=== PATIENT | female | born 1940 | race Hispanic/Latino ===

== ENCOUNTER 2016-03-24 18:29 | Inpatient (IN) | payer OTHER ==
[~2016-03-24] VITALS: Ht 149.9 cm; Wt 45.4 kg
[~2016-03-24 18:29] MED LIST: ALENDRONATE SOD70 MG PO; BENTYL20 MG PO; COZAAR 100MG T100 MG PO; HYDROXYZINE HCL25 MG PO; NASONEX0.05 MG/Ac NAS; OMEPRAZOLE40 MG PO; PEPCID20 MG PO; REGLAN10 MG PO; SENNA CON/DOCUS1 TAB PO; SINGULAIR10 MG PO; TRAMADOL50 MG PO; TYLENOL #31 TAB PO
[2016-03-24] MEDS ORDERED: HYDROCHLOROTH12.5 M2 PO (20:11)
[2016-03-24] MEDS ORDERED: FAMOTIDINE20 M1 PO (20:12)
[2016-03-24] MEDS ORDERED: LEVOFLOXACIN500 M1 PO (20:12)
[2016-03-24] MEDS ORDERED: LOSARTAN POTAS100 M1 PO (20:13)
[2016-03-24] MEDS ORDERED: ALENDRONATE SOD70 M2 PO (20:13)
[2016-03-24] MEDS ORDERED: CLARITIN10 M1 PO (20:14)
[2016-03-24] MEDS ORDERED: FLONASE ALLERG9.9 ML NASB (20:14)
[2016-03-24] MEDS ORDERED: RESTASIS1 EACH OPH (20:15)
[2016-03-24] MEDS ORDERED: TRAMADOL HCL50 M1 PO (20:15)
--- NOTE | 2016-03-24 20:26 | ED GENERAL ADULT ---
History of Present Illness General Chief Complaint: Upper Respiratory Sx/Fever Stated Complaint: FEVER; URI; BODY ACHES Source: patient Exam Limitations: no limitations Vital Signs & Intake/Output Vital Signs & Intake/Output Vital Signs Date Time Temp Pulse Resp B/P Pulse O2 O2 Flow FiO2 Ox Delivery Rate 03/24 2306 97.8 84 18 130/68 98 Room Air Room Air 03/24 1843 97.4 88 16 134/69 97 Room Air Allergies Coded Allergies: heparin (THROMBOCYTOPENIA 03/24/16) sulfamethoxazole (From BACTRIM) (HIVES 03/24/16) trimethoprim (From BACTRIM) (HIVES 03/24/16) Reconcile Medications Alendronate Sodium 70 MG TABLET 1 TAB PO QSUN OSTEOPOROSIS (Reported) in the morning, at least 30 minutes before the first food, beverage, or medication of the day Cyclosporine (Restasis) 0.05 % DROPERETTE 1 GTT OPH BID BOTH EYES (Reported) Famotidine 20 MG TABLET 1 TAB PO BID GI (Reported) Fluticasone Propionate (Flonase Allergy Relief) 50 MCG/ACTUATION SPRAY.SUSP 1 SPRAY NASB DAILY SINUSES (Reported) Hydrochlorothiazide 12.5 MG TABLET 1 TAB PO DAILY BP (Reported) Levofloxacin 500 MG TABLET 1 TAB PO DAILY ANTIBIOTIC (Reported) Loratadine (Claritin) 10 MG TABLET 1 TAB PO DAILY ALLERGIES (Reported) Losartan Potassium 100 MG TABLET 1 TAB PO DAILY BP (Reported) Tramadol HCl 50 MG TABLET 1 TAB PO PRN PAIN (Reported) Triage Note: PT HAS BEEN SICK SINCE RONI A COLD THAT TURNED INTO A SINUS INFECTION. PT WAS ON ABX LAST WEEK AND SHE IS STILL RUNNING A TEMP AND SHE CANT EAT BECAUSE SHE HAS SORES IN HER MOUTH. Triage Nurses Notes Reviewed? yes Onset: Abrupt Duration: day(s): Timing: recent history Injury Environment: home No Modifying Factors: none HPI: 75-year-old female comes into emergency room with multiple complaints. Patient reports that she has been sick on and off for the past month or so. Patient was prescribed Augmentin initially for runny nose and congestion and sinus infection but was getting some abdominal pain with the medication so she discontinued it. Her doctor recently started her on Levaquin. Patient reports that she's had an associated sore throat. Belching. Some pain in upper abdomen/chest. Associated shortness of breath. Denies any fever. Nothing seems to make the symptoms better or worse. Denies any other associated symptoms. (ELICEO BLAIR) Past History Travel History Traveled to [place] past 21 day No Medical History Any Pertinent Medical History? see below for history Cardiovascular: hypertension Hepatic: HEPC Surgical History Surgical History: non-contributory Psychosocial History Who do you live with Patient/Self Services at Home None What is your primary language Mongolian Tobacco Use: Never used ETOH Use: denies use Illicit Drug Use: denies illicit drug use Family History Hx Contributory? No (ELICEO BLAIR) Review of Systems Review of Systems Constitutional: Reports: see HPI. EENTM: Reports: see HPI. Respiratory: Reports: see HPI. Cardiovascular: Reports: see HPI. GI: Reports: see HPI. Genitourinary: Reports: no symptoms. Musculoskeletal: Reports: no symptoms. Skin: Reports: no symptoms. Neurological/Psychological: Reports: no symptoms. Hematologic/Endocrine: Reports: no symptoms. Immunologic/Allergic: Reports: no symptoms. All Other Systems: Reviewed and Negative (ELICEO BLAIR) Physical Exam Physical Exam General Appearance: well developed/nourished, no apparent distress, alert Head: atraumatic, normal appearance Eyes: Bilateral: normal appearance, EOMI. Ears, Nose, Throat: normal ENT inspection, hearing grossly normal, White plaques on tongue, scrapes off Neck: normal inspection, full range of motion Respiratory: normal breath sounds, chest non-tender, no respiratory distress Cardiovascular: regular rate/rhythm Gastrointestinal: soft Back: normal inspection Extremities: normal inspection, normal range of motion Neurologic/Psych: awake, alert, oriented x 3, normal gait, normal mood/affect Skin: intact, normal color Core Measures ACS in differential dx? No CVA/TIA Diagnosis: No Severe Sepsis Present: No Septic Shock Present: No (ELICEO BLAIR) Progress Differential Diagnoses I considered the following diagnoses in my evaluation of the patient: Oral thrush, Bruna esophagitis, MS, peptic ulcer disease, H. pylori, pulmonary embolism, aortic dissection, sinusitis, pneumonia, pancreatitis, Plan of Care: Orders Procedure Date/time Status Regular Diet 03/25 B Active OXYGEN SETUP (GEN) 03/24 2232 Active Saline Lock 03/24 2232 Active Admit to inpatient 03/24 2232 Active Vital Signs 03/24 2232 Active Activity/Ambulation 03/24 2232 Active Code Status 03/24 2232 Active Patient Data 03/24 2224 Active URINALYSIS 03/24 2024 Complete TROPONIN LEVEL 03/24 2024 Complete COMPREHENSIVE METABOLIC PANEL 03/24 2024 Complete CBC WITHOUT DIFFERENTIAL 03/24 2024 Complete EKG 03/24 2024 Active Intake & Output 03/24 2017 Active Current Medications Sig/Antonia Start time Last Medication Dose Stop Time Status Admin Sodium Chloride 1,000 ML ONCE ONE 03/24 2300 AC (Normal Saline 0.9%) 03/25 0539 Laboratory Tests 03/24/162114: Urine Color YEL, Urine Clarity CLEAR, Urine pH 6.0, Ur Specific Robson 1.025, Urine Protein NEG, Urine Ketones NEG, Urine Nitrite NEG, Urine Bilirubin NEG, Urine Urobilinogen 0.2, Ur Leukocyte Esterase NEG, Ur Microscopic SEDIMENT EXAMINED, Urine RBC RARE, Urine WBC RARE, Ur Epithelial Cells RARE, Hyaline Casts 1-3 H, Urine Mucus RARE, Urine Hemoglobin TRACE-INTACT, Urine Glucose NEG 03/24/162103: Anion Gap 9, Estimated GFR 27 L, BUN/Creatinine Ratio 18.9, Glucose 118 H, Calcium 9.0, Total Bilirubin 0.5, AST 40 H, ALT 36, Alkaline Phosphatase 70, Troponin I < 0.01, Total Protein 7.9, Albumin 3.9, Globulin 4.0, Albumin/ Globulin Ratio 1.0 L, CBC w Diff NO MAN DIFF REQ, RBC 3.27 L, MCV 90.4, MCH 30.3, RDW 14.1, MPV 8.9, Gran % 62.7, Lymphocytes % 25.7, Monocytes % 10.8 H, Eosinophils % 0.6, Basophils % 0.2, Absolute Granulocytes 3.7, Absolute Lymphocytes 1.5, Absolute Monocytes 0.6, Absolute Eosinophils 0, Absolute Basophils 0, PUBS MCHC 33.5 Diagnostic Imaging: Viewed by Me: Radiology Read. Discussed w/RAD: Radiology Read. Radiology Impression: EXAM TYPE: RAD - XRY-CHEST XRAY, PA AND LATERAL EXAMINATION: XR CHEST CLINICAL INFORMATION: Chest pain COMPARISON: Chest x-ray 01/05/2012. CT chest 08/26/2011. TECHNIQUE: 2 views of the chest were obtained. FINDINGS: Chronic density at the right lung apex unchanged since 2012 chest x- ray. This is a coarse calcification in the surrounding scarring as seen on CT chest 08/26/2011. The lungs are otherwise clear. No pulmonary vascular congestion or pleural effusion. The cardiac and mediastinal contours are normal. There are vascular calcifications of thoracic aorta The heart size is normal. IMPRESSION: No acute abnormality of the chest. DICTATED BY: CAROLINA BARNES MD DATE /TIME DICTATED:03/24/162118 OUT PATIENT THERAPIST:VIOLETA DATE/TIME TRANSCRIBED: 03/24/162118 Initial ED EKG: normal intervals, normal p-waves, normal QRS complex, normal sinus rhythm, rate (77) (ELICEO BLAIR) Departure Departure Disposition: STILL A PATIENT Condition: Stable Clinical Impression Primary Impression: Acute renal failure Secondary Impressions: Esophageal candidiasis Referrals: DION FELIZ MD (PCP/Family) Departure Forms: Customer Survey General Discharge Information Admission Note Spoke With: ROHIT LOPEZ MD Documentation of Exam: Documentation of any treatments & extenuating circumstances including Concerns Regarding Discharge (functional status, medication knowledge or non-compliance, living conditions, etc.) that warrant an admission rather than observation: Patient has not been able to eat or drink secondary to food getting stuck and liquid getting stuck. Patient has acute renal failure. Patient require IV hydration. Consider infectious disease consult. Renal consult. I feel the patient would do poorly as an outpatient. She may require an upper endoscopy due to her poor oral intake. Patient's creatinine has doubled from its normal. Patient is likely prerenal secondary to poor oral hydration. Case discussed with Dr. thao. (ELICEO BLAIR) PA/ART THERAPY SPECIALIST Co-Sign Statement Statement: ED Attending supervision documentation- x I saw and evaluated the patient. I have also reviewed all the pertinent lab results and diagnostic results. I agree with the findings and the plan of care as documented in the PA's/ART THERAPY SPECIALIST's documentation. [] I have reviewed the ED Record and agree with the PA's/ART THERAPY SPECIALIST's documentation. [] Additions or exceptions (if any) to the PAs/ART THERAPY SPECIALIST's note and plan are summarized below: [] (RAMEZ HA,LA) Critical Care Note Critical Care Note Critical Care Time: non-applicable (ELICEO BLAIR)
--- NOTE | 2016-03-24 21:25 | RADIOLOGY REPORT ---
EXAMINATION: XR CHEST CLINICAL INFORMATION: Chest pain COMPARISON: Chest x-ray 01/05/2012. CT chest 08/26/2011. TECHNIQUE: 2 views of the chest were obtained. FINDINGS: Chronic density at the right lung apex unchanged since 2012 chest x-ray. This is a coarse calcification in the surrounding scarring as seen on CT chest 08/26/2011. The lungs are otherwise clear. No pulmonary vascular congestion or pleural effusion. The cardiac and mediastinal contours are normal. There are vascular calcifications of thoracic aorta The heart size is normal. IMPRESSION: No acute abnormality of the chest.
[2016-03-24 21:33] LABS: ABSOLUTE BASOPHIL COUNT 0 /CUMM (0.0-0.2); ABSOLUTE EOSINOPHIL COUNT 0 /CUMM (0.0-0.7); ABSOLUTE GRANULOCYTE CT 3.7 /CUMM (1.4-6.5); ABSOLUTE LYMPH COUNT 1.5 /CUMM (1.2-3.4); ABSOLUTE MONOCYTE COUNT 0.6 /CUMM (0.10-0.60); BASOPHIL % 0.2 % (0.0-2.0); EOSINOPHIL % 0.6 % (0-5); GRANULOCYTE % 62.7 % (42.2-75.2); HEMATOCRIT 29.5 % (37-47); MEAN CORPUSCULAR HGB 30.3 PG (27.0-31.0); MEAN CORPUSCULAR HGB CONC 33.5 G/DL (33.0-37.0); MEAN CORPUSCULAR VOLUME 90.4 FL (81.0-99.0); MEAN PLATELET VOLUME 8.9 FL (7.4-10.4); PLATELET COUNT 118 /CUMM (130-400); RBC DISTRIBUTION WIDTH 14.1 % (11.5-14.5); RED BLOOD CELL CT 3.27 /CUMM (4.20-5.40); WHITE BLOOD CELL COUNT 5.9 /CUMM (4.8-10.8)
--- NOTE | 2016-03-25 00:04 | History & Physical ---
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 She claims that she started having symptoms of sinusitis since . Her daughter took her to urgent care where she was given a course of Augmentin for total 10 days, which she started on February 15. Even after a course of Augmentin , she continues to have headache, dizziness, runny nose, and heartburn, so she was given Levaquin for total 7 days. After the course of Levaquin. She continues to have sore throat, feeling feverish, dry cough, swollen glands in the neck. She denies chills, runny nose, headache, earache, toothache, chest pain, abdominal pain, diarrhea, constipation. Social-she can do all her daily activity without any assistance, she lives alone. She denies smoking, alcohol use. Allergies -Bactrim Family history-not significant Allergies/Medications Allergies: Coded Allergies: heparin (THROMBOCYTOPENIA 03/24/16) sulfamethoxazole (From BACTRIM) (HIVES 03/24/16) trimethoprim (From BACTRIM) (HIVES 03/24/16) Home Med list Alendronate Sodium 70 MG TABLET 1 TAB PO QSUN OSTEOPOROSIS (Reported) in the morning, at least 30 minutes before the first food, beverage, or medication of the day Cyclosporine (Restasis) 0.05 % DROPERETTE 1 GTT OPH BID BOTH EYES (Reported) Famotidine 20 MG TABLET 1 TAB PO BID GI (Reported) Fluticasone Propionate (Flonase Allergy Relief) 50 MCG/ACTUATION SPRAY.SUSP 1 SPRAY NASB DAILY SINUSES (Reported) Hydrochlorothiazide 12.5 MG TABLET 1 TAB PO DAILY BP (Reported) Levofloxacin 500 MG TABLET 1 TAB PO DAILY ANTIBIOTIC (Reported) Loratadine (Claritin) 10 MG TABLET 1 TAB PO DAILY ALLERGIES (Reported) Losartan Potassium 100 MG TABLET 1 TAB PO DAILY BP (Reported) Tramadol HCl 50 MG TABLET 1 TAB PO PRN PAIN (Reported) Past History Travel History Traveled to [place] past 21 day No Medical History Cardiovascular: hypertension Hepatic: HEPC Surgical History Surgical History: non-contributory Past Family/Social History Psychosocial History Services at Home: None ETOH Use: denies use Illicit Drug Use: denies illicit drug use Review of Systems Review of Systems Constitutional: Reports: fever, weakness. Denies: chills, diaphoresis. EENTM: Denies: blurred vision, double vision, visual changes, eye pain, eye drainage, eye tearing, icterus, ear discharge, ear pain, ear redness, hearing changes, nasal congestion. Cardiovascular: Denies: chest pain, edema, orthopena, palpitations, peripheral edema. Respiratory: Denies: cough, hemoptysis, orthopnea, short of breath, sputum production, stridor, wheezing. GI: Denies: abdominal pain, bloating, constipation, diarrhea, distention, bowel incontinence, melena, nausea, bloody stool, changes in stool, vomiting, steatorrhea. Genitourinary: Denies: discharge, dysuria, frequency, hematuria, hesitation, nocturia. Musculoskeletal: Denies: back pain, gout, joint pain, joint swelling. Skin: Denies: erythema, jaundice. Neurological/Psychological: Denies: anxiety, depressed. Exam & Diagnostic Data Last 24 Hrs of Vital Signs/I&O Vital Signs Date Time Temp Pulse Resp B/P Pulse O2 O2 Flow FiO2 Ox Delivery Rate 03/25 0245 98.0 80 18 132/64 97 Room Air 03/25 0228 97.9 75 18 125/59 98 Room Air 03/24 2306 97.8 84 18 130/68 98 Room Air Room Air 03/24 1843 97.4 88 16 134/69 97 Room Air Intake & Output 03/25 0800 03/25 0000 03/24 1600 Intake Total Output Total Balance Patient 45.359 kg 45.359 kg Weight Physical Exam General Appearance Alert, Oriented X3, Cooperative, No Acute Distress Skin No Rashes, No Breakdown HEENT Atraumatic, PERRLA, EOMI Neck Supple, No JVD Cardiovascular Normal S1, Normal S2, murmur Lungs Clear to Auscultation Abdomen Soft, No Tenderness Neurological Normal Speech Extremities No Cyanosis, No Edema Vascular Normal Pulses, Pulses Symmetrical Assessment/Plan Assessment: Patient is a 75-year-old female with a significant past medical history of hypertension, hepatitis C, 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 Vital signs at the time of admission-temperature 97.4, pulse 88, respiratory rate 16, blood pressure 134/69, SPO2 97% on room air Pertinent labs-GFR 27, AST 40, albumin/globulin ratio 1, hemoglobin 9.9, K -5.3 Chest x-ray shows no any acute cardiopulmonary abnormalities Problem list - Odynophagia SILVIANO secondary to dehydration Thrombocytopenia GERD Anemia Hypertension Hepatitis C History of gall stone pancreatitis, status post-ERCP and sphincterectomy Osteoarthritis Plan - * We will admit the patient in general medical floor * We will give gentle hydration, normal saline IV at the rate of 75 cc/hr * We will repeat BEP in the morning * We will start patient on nystatin swish and swallow and continue famotidine * We placed GI consult and follow the recommendation * As K is high we will hold Losartan/ HCTZ * We will continue all home medication * DVT prophylaxis-ALP S, as the patient had thrombocytopenia secondary to heparin, we will avoid it. * Diet-regular * CODE STATUS - Full code As Ranked By This Provider Problem List: 1. Esophageal candidiasis 2. Acute renal failure 3. Hepatitis C 4. Gastroesophageal reflux 5. Hypertension Core Measures/Miscellaneous Acute Coronary Syndrome ACS Diagnosis: No Cerebrovascular Accident CVA/TIA Diagnosis: No Congestive Heart Failure CHF Diagnosis: No Venous Thromboembolism VTE Risk Factors: Age > 40 VTE Prophylaxis Ordered Inpt: Mechanical (ALPS/TEDS) No Mech VTE prophylaxis d/t: No contraindications No VTE Pharm Prophylaxis d/t: Allergy exists VTE Diagnosis: No VTE Type: NONE VTE Confirmed by (Test): NONE Severe Sepsis Severe Sepsis Present: No Septic Shock Septic Shock Present: No Miscellaneous Documentation Attending Case Discussed With: ROHIT LOPEZ MD Primary Care Physician: DION FELIZ MD Patient sees these Specialists none Level of Patient Care: General Medicine NICCI LUCIO 03/25/16 0227: Resident Review Statement Resident Statement: discussed with hospitality internship Other Findings: She is 75-year-old female with past medical history of hypertension, hepatitis C , history of recurrent gallstone pancreatitis status post ERCP and sphincterotomy, GERD, osteoarthritis presented to ER with chief complaint of having flulike symptoms and sinusitis since [place]. Daughter is also at bedside. Patient went to an urgent care in February and she was prescribed with 10 day course of Augmentin that she finished. Her symptoms did not improve. Patient went to her PCP who prescribed her with Levaquin for 7 days. She is complaining of sore throat, dysphagia and odynophagia, food stucking in her chest, heartburn and epigastric pain. She also reports dizziness/ lightheadedness, tactile fever and dry cough. She also reports breathing difficulty at the same time when she feels that food is stuck in her chest. Patient lives alone and independent for her ADLs. She denies any nausea, vomiting, diarrhea or constipation. Vitals on admission: Temperature 97.4, pulse 88, respiratory rate 16, blood pressure 134/69 and oxygen saturation 97% on room air Positive physical exam findings: Dry mucous membranes with white coated tongue, no pharyngeal erythema or visible thrush or mucous membranes. and appendectomy scar on her abdomen. 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 Acute kidney injury most likely secondary to dehydration and poor oral intake 2. Dysphagia/odynophagia with sensation of food stuck in her chest. Patient has completed course of 2 different antibiotics recently. Her tongue is coated. It could be a possibility that patient has developed esophageal fungal infection. Patient also has history of GERD and takes famotidine for that. 3. Hyperkalemia. Potassium 5.3 4. History of hypertension 5. History of normocytic anemia 6. Thrombocytopenia. Etiology unknown Plan * Monitor vitals closely * Continue IV fluids. Repeat kidney functions in a.m. Avoid nephrotoxins * Continue famotidine. GI consult in a.m. * Nystatin swish and swallow * We will hold losartan and hydrochlorothiazide for now. If patient becomes hypertensive we can give her amlodipine * For anemia we can check iron panel, vitamin B12 and folate * Recent BEP in a.m. * Pain management pathway * Alps for DVT prophylaxis. Patient is also allergic to heparin. Cannot give her Lovenox because of SILVIANO * Regular diet * Full code ROHIT LOPEZ 03/25/16 0658: Attending MD Review Statement Attending Statement Attending MD Statement: examined this patient, discuss w/resident/PA/UNIFORM ROOM ATTENDANT, agreed w/resident/PA/UNIFORM ROOM ATTENDANT, reviewed EMR data (avail), reviewed images, amended to note Attending Assessment/Plan: CC: food getting stuck in chest, choking PMH: HTN, hep C, history of gallstone pancreatitis, GERD Patient had extended sinusitis and URI symptoms since last 1 and half months, was treated with Augmentin for 10 days followed by Levaquin for 7 days. URI symptoms are better but patient complains of difficulty swallowing, food getting stuck in chest, and epigastric pain. Vitals: Afebrile, pulse, respiration, blood pressure, O2 saturation in acceptable range. On exam: A O 3, no acute distress, neck supple, no lymphadenopathy, no JVD, mucosa dry, tongue coated, no pharyngeal congestion, no thrush, RS: Clear to auscultate bilaterally. CVS: S1-S2, RRR. Abdomen: Soft, NT, ND, bowel sounds present. No pedal edema, normal peripheral perfusion and pulses. Labs: Hemoglobin 9.9, Creatinine 1.8, potassium 5.3. CXR: Unremarkable A and P #1 dysphagia and odynophagia : Patient may have candidal esophagitis, with the prolonged antibiotic use. But would benefit from GI evaluation given that long- standing history of GERD, anemia and epigastric pain. Continue PPI, continue nystatin swish and swallow #2 SILVIANO: Poor oral intake in last few days because of pain may have precipitated prerenal injury, cold lisinopril and HCTZ, continue gentle hydration. By mouth amlodipine if required. #3 DVT prophylaxis with heparin, adequate pain control
[2016-03-25 02:45] VITALS: BP 132/64
[2016-03-25 06:23] VITALS: BP 108/60
--- NOTE | 2016-03-25 06:59 | Admission Certification ---
Admission Certification Certification Statement - As attending physician, I certify that at the time of - admission, based on clinical presentation, severity of - symptoms, need for further diagnostic testing and - therapeutic interventions, and risk of adverse outcomes - without in-hospital treatment, in my clinical assessment, - this patient requires an acute hospital stay for a minimum - of two nights or longer. I have also considered psychsocial - factors such as support system, advanced age, financial - issues, cognitive issues, and failed out-patient treatments, - past re-admission history, safety of patient, and lack of - compliance as applicable. Specific rationale supporting this admission is: Volume contraction, SILVIANO, suspected esophagitis
[2016-03-25 09:06] LABS: ABSOLUTE BASOPHIL COUNT 0 /CUMM (0.0-0.2); ABSOLUTE EOSINOPHIL COUNT 0 /CUMM (0.0-0.7); ABSOLUTE GRANULOCYTE CT 2.4 /CUMM (1.4-6.5); ABSOLUTE LYMPH COUNT 2.2 /CUMM (1.2-3.4); ABSOLUTE MONOCYTE COUNT 0.4 /CUMM (0.10-0.60); BASOPHIL % 0.5 % (0.0-2.0); GRANULOCYTE % 46.8 % (42.2-75.2); HEMATOCRIT 27.9 % (37-47); MEAN CORPUSCULAR HGB 30.9 PG (27.0-31.0); MEAN CORPUSCULAR HGB CONC 34.2 G/DL (33.0-37.0); MEAN CORPUSCULAR VOLUME 90.4 FL (81.0-99.0); MEAN PLATELET VOLUME 9.3 FL (7.4-10.4); PLATELET COUNT 104 /CUMM (130-400); RBC DISTRIBUTION WIDTH 14.1 % (11.5-14.5); RED BLOOD CELL CT 3.09 /CUMM (4.20-5.40)
--- NOTE | 2016-03-25 11:39 | PN- Att Addend ---
Attending Addendum Attending Brief Note Patient seen and examined, still complains of odynophagia. 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 Vital Signs Date Time Temp Pulse Resp B/P Pulse O2 O2 Flow FiO2 Ox Delivery Rate 03/25 0623 98.4 65 18 108/60 96 Room Air 03/25 0245 98.0 80 18 132/64 97 Room Air 03/25 0228 97.9 75 18 125/59 98 Room Air 03/24 2306 97.8 84 18 130/68 98 Room Air Room Air 03/24 1843 97.4 88 16 134/69 97 Room Air on exam; aox3, nad. heent: No thrush was appreciated and throat examination. cv; s1, s2, rrr. resp; clear abd; soft, mild tenderness in epigastrium, bs+ ext; no edema. Laboratory Tests 03/25 03/24 0630 2115 Chemistry Sodium (137 - 145 mmol/L) 143 Potassium (3.5 - 5.1 mmol/L) 3.8 Chloride (98 - 107 mmol/L) 109 H Carbon Dioxide (22 - 30 mmol/L) 25 Anion Gap (5 - 16) 10 BUN (7 - 17 mg/dL) 26 H Creatinine (0.5 - 1.0 mg/dL) 1.4 H Estimated GFR (>60 ml/min) 36 L BUN/Creatinine Ratio (7 - 25 %) 18.6 Hematology CBC w Diff NO MAN DIFF REQ WBC (4.8 - 10.8 /CUMM) 5.0 RBC (4.20 - 5.40 /CUMM) 3.09 L Hgb (12.0 - 16.0 G/DL) 9.6 L Hct (37 - 47 %) 27.9 L MCV (81.0 - 99.0 FL) 90.4 MCH (27.0 - 31.0 PG) 30.9 RDW (11.5 - 14.5 %) 14.1 Plt Count (130 - 400 /CUMM) 104 L MPV (7.4 - 10.4 FL) 9.3 Gran % (42.2 - 75.2 %) 46.8 Lymphocytes % (20.5 - 51.1 %) 43.3 Monocytes % (1.7 - 9.3 %) 8.4 Eosinophils % (0 - 5 %) 1.0 Basophils % (0.0 - 2.0 %) 0.5 Absolute Granulocytes (1.4 - 6.5 /CUMM) 2.4 Absolute Lymphocytes (1.2 - 3.4 /CUMM) 2.2 Absolute Monocytes (0.10 - 0.60 /CUMM) 0.4 Absolute Eosinophils (0.0 - 0.7 /CUMM) 0 Absolute Basophils (0.0 - 0.2 /CUMM) 0 PUBS MCHC (33.0 - 37.0 G/DL) 34.2 Urines Urine Color (YEL,AMB,STR) YEL Urine Clarity (CLEAR) CLEAR Urine pH (5.0 - 8.0) 6.0 Ur Specific [place] (1.001 - 1.035) 1.025 Urine Protein (NEG,<30 MG/DL) NEG Urine Ketones (NEG) NEG Urine Nitrite (NEG) NEG Urine Bilirubin (NEG) NEG Urine Urobilinogen (0.1 - 1.0 EU/dl) 0.2 Ur Leukocyte Esterase (NEG) NEG Ur Microscopic SEDIMENT EXAMINED Urine RBC (0 - 5 /HPF) RARE Urine WBC (0 - 2 /HPF) RARE Ur Epithelial Cells (NONE,FEW) RARE Hyaline Casts (0/LPF) 1-3 H Urine Mucus (FEW,NONE) RARE Urine Hemoglobin (NEG) TRACE-INTACT Urine Glucose (N MG/DL) NEG 03/24 2103 Chemistry Sodium (137 - 145 mmol/L) 140 Potassium (3.5 - 5.1 mmol/L) 5.3 H Chloride (98 - 107 mmol/L) 105 Carbon Dioxide (22 - 30 mmol/L) 27 Anion Gap (5 - 16) 9 BUN (7 - 17 mg/dL) 34 H Creatinine (0.5 - 1.0 mg/dL) 1.8 H Estimated GFR (>60 ml/min) 27 L BUN/Creatinine Ratio (7 - 25 %) 18.9 Glucose (65 - 99 mg/dL) 118 H Calcium (8.4 - 10.2 mg/dL) 9.0 Iron (37 - 170 ug/dL) 32 L TIBC (265 - 497 ug/dL) 399 Ferritin (11.1 - 264 ng/mL) 49.6 Total Bilirubin (0.2 - 1.3 mg/dL) 0.5 AST (14 - 36 U/L) 40 H ALT (9 - 52 U/L) 36 Alkaline Phosphatase (<127 U/L) 70 Troponin I (< 0.11 ng/ml) < 0.01 Total Protein (6.3 - 8.2 g/dL) 7.9 Albumin (3.5 - 5.0 g/dL) 3.9 Globulin (1.9 - 4.2 gm/dL) 4.0 Albumin/Globulin Ratio (1.1 - 2.2 %) 1.0 L Vitamin B12 (239 - 931 pg/mL) 704 Folate (2.76 - 20.0 ng/mL) > 20.0 H Hematology CBC w Diff NO MAN DIFF REQ WBC (4.8 - 10.8 /CUMM) 5.9 RBC (4.20 - 5.40 /CUMM) 3.27 L Hgb (12.0 - 16.0 G/DL) 9.9 L Hct (37 - 47 %) 29.5 L MCV (81.0 - 99.0 FL) 90.4 MCH (27.0 - 31.0 PG) 30.3 RDW (11.5 - 14.5 %) 14.1 Plt Count (130 - 400 /CUMM) 118 L MPV (7.4 - 10.4 FL) 8.9 Gran % (42.2 - 75.2 %) 62.7 Lymphocytes % (20.5 - 51.1 %) 25.7 Monocytes % (1.7 - 9.3 %) 10.8 H Eosinophils % (0 - 5 %) 0.6 Basophils % (0.0 - 2.0 %) 0.2 Absolute Granulocytes (1.4 - 6.5 /CUMM) 3.7 Absolute Lymphocytes (1.2 - 3.4 /CUMM) 1.5 Absolute Monocytes (0.10 - 0.60 /CUMM) 0.6 Absolute Eosinophils (0.0 - 0.7 /CUMM) 0 Absolute Basophils (0.0 - 0.2 /CUMM) 0 PUBS MCHC (33.0 - 37.0 G/DL) 33.5 A/P: Patient is a 75-year-old female with past medical history significant for hypertension, hepatitis C, 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 Creatinine improving gradually with IV fluids. Patient on H2 ashly. Will get a GI evaluation. Patient was started on nystatin but on examination of the throat and pharynx no thrush was appreciated. We discussed the GI if she needs a repeat endoscopy. Last one done in 2011 showed nonerosive gastritis. Continue other current meds. DVT px: ALPS.
[2016-03-25 13:15] VITALS: BP 122/64
--- NOTE | 2016-03-25 15:49 | Cons- Gastroenterology ---
General Information and HPI Consulting Request Date of Consult: 03/25/16 Requested By: IDRIS HA,MIMI Source of Information: patient, family, old records Exam Limitations: language barrier History of Present Illness: 75-year-old female with a history of hepatitis C, untreated. There is no history of leg swelling, GI bleeding, jaundice. Also with history of GERD, on a PPI, and a questionable history of peptic ulcer disease with episodic epigastric pain over many years. She now presents with acute onset of difficulty swallowing and pain on swallowing (in her chest) with regurgitation. She can't even hold down liquids without regurgitation. There has been no nausea, or vomiting. There has been no other chest pain. There has been some upper abdominal pain and tenderness. She has been on multiple courses of antibiotics for upper respiratory infection recently. Bowel movements have been regular, and without blood or black stool. She has not been losing weight. Allergies/Medications Allergies: Coded Allergies: heparin (THROMBOCYTOPENIA 03/24/16) sulfamethoxazole (From BACTRIM) (HIVES 03/24/16) trimethoprim (From BACTRIM) (HIVES 03/24/16) Home Med List: Cyclosporine (Restasis) 0.05 % DROPERETTE 1 GTT OPH BID BOTH EYES (Reported) Famotidine 20 MG TABLET 1 TAB PO BID GI (Reported) Fluticasone Propionate (Flonase Allergy Relief) 50 MCG/ACTUATION SPRAY.SUSP 1 SPRAY [place]B DAILY SINUSES (Reported) Loratadine (Claritin) 10 MG TABLET 1 TAB PO DAILY ALLERGIES (Reported) Magnesium Oxide (Magnesium) 400 MG CAPSULE 1 CAP PO DAILY low magnesium Tramadol HCl 50 MG TABLET 1 TAB PO DAILY PRN PAIN (Reported) Current Medications: Current Medications Sig/Antonia Start time Last Medication Dose Route Stop Time Status Admin Acetaminophen 650 MG Q6P PRN 03/25 0100 AC PO Alendronate Sodium 70 MG QSUN 03/27 0700 CAN PO Famotidine 0 .STK-MED ONE 03/25 0056 DC PO Famotidine 20 MG BID 03/25 0051 DC 03/25 PO 0927 Fluticasone 1 SPRAY DAILY PRN 03/25 0100 DC Propionate TALON Hydrochlorothiazide 12.5 MG DAILY 03/25 1000 CAN PO Loratadine 10 MG DAILY 03/25 1000 AC 03/25 PO 0926 Nystatin 5 ML 4 TIMES/DAY 03/25 0118 AC 03/25 PO 1336 Omeprazole 40 MG DAILY AC 03/26 0700 AC PO Sodium Chloride 1,000 ML Q13H 03/25 0130 DC 03/25 IV 03/25 1429 0321 Sodium Chloride 1,000 ML ONCE ONE 03/24 2300 DC 03/24 IV 03/25 0539 2327 Tramadol HCl 50 MG Q6-PRN PRN 03/25 0100 AC 03/25 PO 1338 Past History Travel History Traveled to [place] past 21 day No Medical History Blood Transfusion Hx: Yes Neurological: NONE EENT: sinusitis Cardiovascular: hypertension Respiratory: NONE Gastrointestinal: peptic ulcer disease Hepatic: HEPC Renal: NONE Musculoskeletal: osteoarthritis Psychiatric: NONE Endocrine: NONE Blood Disorders: NONE Cancer(s): NONE ADOPTION SOCIAL WORKER/Reproductive: NONE Surgical History Surgical History: non-contributory Psychosocial History Where Do You Live? Home Services at Home: None Smoking Status: Never Smoked ETOH Use: denies use Illicit Drug Use: denies illicit drug use Review of Systems Review of Systems Constitutional: Denies: chills, fever. EENTM: Denies: icterus, epistaxis. Cardiovascular: Denies: chest pain, edema, syncope. Respiratory: Denies: cough, orthopnea, short of breath. GI: Reports: see HPI. Genitourinary: Denies: dysuria, hematuria. Musculoskeletal: Denies: muscle stiffness, neck pain. Skin: Denies: jaundice, lesions. Neurological/Psychological: Denies: cognitive dysfunction, headache. Hematologic/Endocrine: Denies: bruising, bleeding, polyuria. Exam & Diagnostic Data Vital Signs and I&O Vital Signs Date Time Temp Pulse Resp B/P Pulse O2 O2 Flow FiO2 Ox Delivery Rate 03/25 1315 98.6 77 20 122/64 96 Room Air 03/25 0623 98.4 65 18 108/60 96 Room Air 03/25 0245 98.0 80 18 132/64 97 Room Air 03/25 0228 97.9 75 18 125/59 98 Room Air 03/24 2306 97.8 84 18 130/68 98 Room Air Room Air 03/24 1843 97.4 88 16 134/69 97 Room Air Intake & Output 03/25 1600 03/25 0400 03/24 1600 03/24 0400 03/23 1600 03/23 0400 Intake Total 1200 Output Total Balance 1200 Intake, IV 600 Intake, Oral 600 Number 0 Bowel Movements Patient 99 lb 15.99 oz Weight Physical Exam: Well-developed well-nourished, in no apparent distress. Alert and oriented. Skin normal without rash, lesion, jaundice, stigmata of liver disease. No adenopathy. No scleral icterus, oropharyngeal lesion, or thyromegaly. Heart regular rhythm. Lungs clear. Abdomen is soft and nondistended with normal bowel sounds. There is mild epigastric tenderness, without mass, organomegaly or hernia. Extremities without clubbing, cyanosis or edema. Pulses are intact bilaterally. No asterixis. Results Pertinent Lab Results: Laboratory Tests 03/25 03/24 0630 2115 Chemistry Sodium (137 - 145 mmol/L) 143 Potassium (3.5 - 5.1 mmol/L) 3.8 Chloride (98 - 107 mmol/L) 109 H Carbon Dioxide (22 - 30 mmol/L) 25 Anion Gap (5 - 16) 10 BUN (7 - 17 mg/dL) 26 H Creatinine (0.5 - 1.0 mg/dL) 1.4 H Estimated GFR (>60 ml/min) 36 L BUN/Creatinine Ratio (7 - 25 %) 18.6 Hematology CBC w Diff NO MAN DIFF REQ WBC (4.8 - 10.8 /CUMM) 5.0 RBC (4.20 - 5.40 /CUMM) 3.09 L Hgb (12.0 - 16.0 G/DL) 9.6 L Hct (37 - 47 %) 27.9 L MCV (81.0 - 99.0 FL) 90.4 MCH (27.0 - 31.0 PG) 30.9 RDW (11.5 - 14.5 %) 14.1 Plt Count (130 - 400 /CUMM) 104 L MPV (7.4 - 10.4 FL) 9.3 Gran % (42.2 - 75.2 %) 46.8 Lymphocytes % (20.5 - 51.1 %) 43.3 Monocytes % (1.7 - 9.3 %) 8.4 Eosinophils % (0 - 5 %) 1.0 Basophils % (0.0 - 2.0 %) 0.5 Absolute Granulocytes (1.4 - 6.5 /CUMM) 2.4 Absolute Lymphocytes (1.2 - 3.4 /CUMM) 2.2 Absolute Monocytes (0.10 - 0.60 /CUMM) 0.4 Absolute Eosinophils (0.0 - 0.7 /CUMM) 0 Absolute Basophils (0.0 - 0.2 /CUMM) 0 PUBS MCHC (33.0 - 37.0 G/DL) 34.2 Urines Urine Color (YEL,AMB,STR) YEL Urine Clarity (CLEAR) CLEAR Urine pH (5.0 - 8.0) 6.0 Ur Specific [place] (1.001 - 1.035) 1.025 Urine Protein (NEG,<30 MG/DL) NEG Urine Ketones (NEG) NEG Urine Nitrite (NEG) NEG Urine Bilirubin (NEG) NEG Urine Urobilinogen (0.1 - 1.0 EU/dl) 0.2 Ur Leukocyte Esterase (NEG) NEG Ur Microscopic SEDIMENT EXAMINED Urine RBC (0 - 5 /HPF) RARE Urine WBC (0 - 2 /HPF) RARE Ur Epithelial Cells (NONE,FEW) RARE Hyaline Casts (0/LPF) 1-3 H Urine Mucus (FEW,NONE) RARE Urine Hemoglobin (NEG) TRACE-INTACT Urine Glucose (N MG/DL) NEG 03/24 2103 Chemistry Sodium (137 - 145 mmol/L) 140 Potassium (3.5 - 5.1 mmol/L) 5.3 H Chloride (98 - 107 mmol/L) 105 Carbon Dioxide (22 - 30 mmol/L) 27 Anion Gap (5 - 16) 9 BUN (7 - 17 mg/dL) 34 H Creatinine (0.5 - 1.0 mg/dL) 1.8 H Estimated GFR (>60 ml/min) 27 L BUN/Creatinine Ratio (7 - 25 %) 18.9 Glucose (65 - 99 mg/dL) 118 H Calcium (8.4 - 10.2 mg/dL) 9.0 Iron (37 - 170 ug/dL) 32 L TIBC (265 - 497 ug/dL) 399 Ferritin (11.1 - 264 ng/mL) 49.6 Total Bilirubin (0.2 - 1.3 mg/dL) 0.5 AST (14 - 36 U/L) 40 H ALT (9 - 52 U/L) 36 Alkaline Phosphatase (<127 U/L) 70 Troponin I (< 0.11 ng/ml) < 0.01 Total Protein (6.3 - 8.2 g/dL) 7.9 Albumin (3.5 - 5.0 g/dL) 3.9 Globulin (1.9 - 4.2 gm/dL) 4.0 Albumin/Globulin Ratio (1.1 - 2.2 %) 1.0 L Vitamin B12 (239 - 931 pg/mL) 704 Folate (2.76 - 20.0 ng/mL) > 20.0 H Hematology CBC w Diff NO MAN DIFF REQ WBC (4.8 - 10.8 /CUMM) 5.9 RBC (4.20 - 5.40 /CUMM) 3.27 L Hgb (12.0 - 16.0 G/DL) 9.9 L Hct (37 - 47 %) 29.5 L MCV (81.0 - 99.0 FL) 90.4 MCH (27.0 - 31.0 PG) 30.3 RDW (11.5 - 14.5 %) 14.1 Plt Count (130 - 400 /CUMM) 118 L MPV (7.4 - 10.4 FL) 8.9 Gran % (42.2 - 75.2 %) 62.7 Lymphocytes % (20.5 - 51.1 %) 25.7 Monocytes % (1.7 - 9.3 %) 10.8 H Eosinophils % (0 - 5 %) 0.6 Basophils % (0.0 - 2.0 %) 0.2 Absolute Granulocytes (1.4 - 6.5 /CUMM) 3.7 Absolute Lymphocytes (1.2 - 3.4 /CUMM) 1.5 Absolute Monocytes (0.10 - 0.60 /CUMM) 0.6 Absolute Eosinophils (0.0 - 0.7 /CUMM) 0 Absolute Basophils (0.0 - 0.2 /CUMM) 0 PUBS MCHC (33.0 - 37.0 G/DL) 33.5 Assessment/Plan Assessment/Recommendations: 1. Acute dysphagia/odynophagia. Rule out food impaction (although unlikely), esophagitis (infectious, reflux, pill, etc.). The patient has underlying GERD and has been on H2 ashly therapy. Previous endoscopy did not demonstrate esophagitis. 2. Episodic epigastric pain, with possible history of peptic ulcer disease. 3. Hepatitis C, as of yet untreated, with thrombocytopenia concerning for advanced fibrosis/cirrhosis. Rule out portal hypertension/varices. 4. Normocytic anemia. Low iron saturation, with normal ferritin; normal B12. Recommendations * Nothing by mouth, IV fluids * IV PPI * EGD to be performed this afternoon, with further recommendations to follow. Nothing by mouth. * Evaluation of anemia will follow * Probable outpatient treatment of hepatitis C Consult Acknowledgment - Thank you for your consult request.
--- NOTE | 2016-03-25 16:37 | Proc Note Endoscopy ---
Endoscopy Procedure Procedure Date: 03/25/16 Procedure Type: EGD w/biopsy Methods And Procedures Analyst: Lex Sanabria M.D. ASA Classification: III Indications: 1. Acute dysphagia, odynophagia 2. Chronic GERD 3. Recurrent epigastric pain; possible history of peptic ulcer disease 4. Hepatitis C with possible cirrhosis. Rule out evidence of portal hypertension. Instrument: diagnostic gastroscope Meds Received: MAC Patient's Tolerance: good Complications: none Extent Reached: second part of duodenum Procedure: The patient signed informed consent (with son translating), and was medicated. Hurricaine pharyngeal spray was administered. Pulse oximetry, blood pressure and cardiac monitoring were performed continuously throughout the procedure. The Olympus high-definition gastroscope was inserted into the mouth and advanced to the duodenum. Retroflexion was performed within the stomach to examine the cardia. Careful examination was performed. Findings: There was poor dentition. The palate/pharynx, hypopharynx were normal, without evidence of thrush. The esophageal inlet was normal. The esophagus had normal caliber and contour. There were no webs, strictures, or areas of extrinsic compression. There were no diverticula. The mucosa was intact throughout, without evident plaques/moniliasis, erythema, furrowing, erosive disease, ulceration, or nodularity. There were no varices. There was no evident Gayle's; the GE junction was at 40 cm at which site was a ring, and distal to which was an intermittent small sliding hiatal hernia. The stomach had normal distention and active peristalsis. The cardia was normal. The mucosa and folds were normal throughout. Biopsies were obtained from body, incisura and antrum. The pylorus was somewhat patulous but otherwise normal. There was no deformity. The duodenal bulb was normal without erosion, ulceration or deformity. Mucosa and folds of the duodenal sweep were normal. Impression: * Poor dentition * No thrush * No evident esophagitis * No varices, or evidence of portal hypertension. * GE junction ring Recommendations: * Begin full liquid diet with polymeric supplements, and advance to regular diet if tolerated (soft, or chopped/pured, given dentition). * Continue PPI, at BID dosing for now * Await pathology * If continues to have dysphagia and/or odynophagia, consider esophagram with liquid barium as well as barium soaked bread and barium tablet. May eventually require dilatation of GE junction ring. * Outpatient management of hepatitis C * Attention to poor dentition as outpatient CC: TRINI HA,DION
[2016-03-25 17:46] VITALS: BP 108/58
--- NOTE | 2016-03-25 18:29 | PN- Housestaff ---
Subjective Follow-up For: 1. Acute dysphagia, odynophagia 2. Chronic GERD Subjective: I saw examined the patient today morning She is lying on the bed, alert and oriented 3. She complains of food sticking in her lower esophagus with eating and drinking. She doesn't report any improvement from the time of admission. She speaks Slovak, and able to communicate well. She denies any chest pain, nausea, vomiting, diarrhea, fever, chills. Review of Systems Constitutional: Reports: see HPI. EENTM: Reports: see HPI. Comments: Otherwise negative except above. Objective Last 24 Hrs of Vital Signs/I&O Vital Signs Date Time Temp Pulse Resp B/P Pulse O2 O2 Flow FiO2 Ox Delivery Rate 03/25 1746 98.1 75 20 108/58 96 Room Air 03/25 1315 98.6 77 20 122/64 96 Room Air 03/25 0623 98.4 65 18 108/60 96 Room Air 03/25 0245 98.0 80 18 132/64 97 Room Air 03/25 0228 97.9 75 18 125/59 98 Room Air 03/24 2306 97.8 84 18 130/68 98 Room Air Room Air 03/24 1843 97.4 88 16 134/69 97 Room Air Intake & Output 03/25 1600 03/25 0800 03/25 0000 Intake Total 720 480 Output Total Balance 720 480 Intake, IV 600 Intake, Oral 120 480 Number 0 Bowel Movements Patient 45.359 kg 45.359 kg Weight Physical Exam General Appearance: Alert, Oriented X3, Cooperative, No Acute Distress Skin: No Rashes, No Breakdown HEENT: Atraumatic, PERRLA, EOMI, Mucous Membr. moist/pink Neck: Supple, No JVD Cardiovascular: Regular Rate, Normal S1, Normal S2, No Murmurs Lungs: Clear to Auscultation, Normal Air Movement Abdomen: Normal Bowel Sounds, Soft, No Tenderness Neurological: Normal Gait, Normal Speech, Strength at 5/5 X4 Ext, Normal Tone Extremities: No Clubbing, No Cyanosis, No Edema Vascular: Normal Pulses, Pulses Symmetrical Current Medications: Current Medications Sig/Antonia Start time Last Medication Dose Route Stop Time Status Admin Acetaminophen 650 MG Q6P PRN 03/25 0100 AC PO Alendronate Sodium 70 MG QSUN 03/27 0700 CAN PO Famotidine 0 .STK-MED ONE 03/25 0056 DC PO Famotidine 20 MG BID 03/25 0051 DC 03/25 PO 0927 Fluticasone 1 SPRAY DAILY PRN 03/25 0100 DC Propionate TALON Hydrochlorothiazide 12.5 MG DAILY 03/25 1000 CAN PO Loratadine 10 MG DAILY 03/25 1000 AC 03/25 PO 0926 Nystatin 5 ML 4 TIMES/DAY 03/25 0118 AC 03/25 PO 1812 Omeprazole 40 MG DAILY AC 03/26 0700 AC PO Sodium Chloride 1,000 ML Q13H 03/25 0130 DC 03/25 IV 03/25 1429 0321 Sodium Chloride 1,000 ML ONCE ONE 03/24 2300 DC 03/24 IV 03/25 0539 2327 Tramadol HCl 50 MG Q6-PRN PRN 03/25 0100 AC 03/25 PO 1338 Last 24 Hrs of Lab/Jorge Results Last 24 Hrs of Labs/Mics: Laboratory Tests 03/25/16 0630: Anion Gap 10, Estimated GFR 36 L, BUN/Creatinine Ratio 18.6, CBC w Diff NO MAN DIFF REQ, RBC 3.09 L, MCV 90.4, MCH 30.9, RDW 14.1, MPV 9.3, Gran % 46.8, Lymphocytes % 43.3, Monocytes % 8.4, Eosinophils % 1.0, Basophils % 0.5, Absolute Granulocytes 2.4, Absolute Lymphocytes 2.2, Absolute Monocytes 0.4, Absolute Eosinophils 0, Absolute Basophils 0, PUBS MCHC 34.2 03/24/162114: Urine Color YEL, Urine Clarity CLEAR, Urine pH 6.0, Ur Specific [place] 1.025, Urine Protein NEG, Urine Ketones NEG, Urine Nitrite NEG, Urine Bilirubin NEG, Urine Urobilinogen 0.2, Ur Leukocyte Esterase NEG, Ur Microscopic SEDIMENT EXAMINED, Urine RBC RARE, Urine WBC RARE, Ur Epithelial Cells RARE, Hyaline Casts 1-3 H, Urine Mucus RARE, Urine Hemoglobin TRACE-INTACT, Urine Glucose NEG 03/24/162103: Anion Gap 9, Estimated GFR 27 L, BUN/Creatinine Ratio 18.9, Glucose 118 H, Calcium 9.0, Iron 32 L, TIBC 399, Ferritin 49.6, Total Bilirubin 0.5, AST 40 H , ALT 36, Alkaline Phosphatase 70, Troponin I < 0.01, Total Protein 7.9, Albumin 3.9, Globulin 4.0, Albumin/Globulin Ratio 1.0 L, Vitamin B12 704, Folate > 20.0 H, CBC w Diff NO MAN DIFF REQ, RBC 3.27 L, MCV 90.4, MCH 30.3, RDW 14.1, MPV 8.9, Gran % 62.7, Lymphocytes % 25.7, Monocytes % 10.8 H, Eosinophils % 0.6, Basophils % 0.2, Absolute Granulocytes 3.7, Absolute Lymphocytes 1.5, Absolute Monocytes 0.6, Absolute Eosinophils 0, Absolute Basophils 0, PUBS MCHC 33.5 Microbiology 03/25 0130 NASOPHARYN: Influenza Virus A & B Rapid Smear - COMP Assessment/Plan Assessment: Patient is a 75-year-old female with past medical history significant for hepatitis C, recurrent gallstone pancreatitis status post ERCP , osteoarthritis, GERD came to the ER with dysphagia and choking. Recently patient experienced extended sinusitis with upper respiratory infection for which she had 2 courses of antibiotics Augmentin for 10 days followed by Levaquin for 7 days. On admission vitals are stable with unremarkable white count. H&H is 9.9/29.5 with MCV 90.4, platelet count of 118 (chronic) Potassium of 5.3, creatinine 1.8 (baseline 1.1) Chest x-ray Unremarkable She is admitted to general medicine floor for further management Dysphagia/odynophagia * History of GERD, alendronate intake - possible Gayle's/peptic ulcer disease/ pill esophagitis * Underwent endoscopy today - suggestive of GE junction ring at 40 cm * Started on full liquid diet with PPI twice a day * If patient continues to have dysphagia/odynophagia esophagogram with liquid barium along with barium soaked bread and barium tablet is considered * Biopsies were obtained from body, incisura and antrum. Await pathology reports * Eventually required gastro-esophageal ring dilation Acute kidney injury * Creatinine 1.8 (baseline 1.1) * Started on IV fluids, creatinine improved to 1.4 * Potassium of 5.3 at admission which decreased to 3.8 today * Monitor her creatinine GERD * On famotidine 20 mg * Follows Dr. frost * Medical records need to be obtained Hepatitis C * AST/ALT 40/36 * Normal total bili of 0.5 alkaline phosphatase 70 * Thrombo-cytopenic chronically * Records need to be obtained Hypertension * On HCTZ 12.5 mg at home * Holding in the setting of SILVIANO. * Resume if blood pressure increases Normocytic anemia * H&H of 9.9/29.5 with an MCV of 92 * Reticulocyte count of 2 in 2012 * Ferritin within normal limits with low total iron Seasonal allergies * On famotidine and fluticasone nasal spray * Would continue that Recent sinusitis/respiratory infection * Took 2 courses of antibiotics with Augmentin and Levaquin * Appears resolved DVT prophylaxis * ALPS CODE STATUS * Full code Problem List: 1. Cirrhosis - non-alcoholic 2. Gastroesophageal reflux 3. Hepatitis C 4. Hypertension 5. Esophageal ring Pain Ratin Pain Location: esophagus Pain Goal: Pain 4 or less Pain Plan: Tylenol when necessary Tomorrow's Labs & Rationales: CBC to monitor thrombocytopenia, BEP tomorrow and her BUN and creatinine DVT/Prophylaxis: mechanical
[2016-03-25 21:56] VITALS: BP 104/54
[2016-03-26 06:25] VITALS: BP 108/54
[2016-03-26 08:19] LABS: ABSOLUTE BASOPHIL COUNT 0 /CUMM (0.0-0.2); ABSOLUTE EOSINOPHIL COUNT 0 /CUMM (0.0-0.7); ABSOLUTE GRANULOCYTE CT 2.1 /CUMM (1.4-6.5); ABSOLUTE LYMPH COUNT 1.9 /CUMM (1.2-3.4); ABSOLUTE MONOCYTE COUNT 0.5 /CUMM (0.10-0.60); BASOPHIL % 0.3 % (0.0-2.0); EOSINOPHIL % 1.1 % (0-5); GRANULOCYTE % 46.1 % (42.2-75.2); HEMATOCRIT 26.7 % (37-47); MEAN CORPUSCULAR HGB 30.9 PG (27.0-31.0); MEAN CORPUSCULAR HGB CONC 34.4 G/DL (33.0-37.0); MEAN CORPUSCULAR VOLUME 89.7 FL (81.0-99.0); MEAN PLATELET VOLUME 8.9 FL (7.4-10.4); PLATELET COUNT 102 /CUMM (130-400); RBC DISTRIBUTION WIDTH 14.1 % (11.5-14.5); RED BLOOD CELL CT 2.98 /CUMM (4.20-5.40); WHITE BLOOD CELL COUNT 4.7 /CUMM (4.8-10.8)
--- NOTE | 2016-03-26 08:30 | PN- Housestaff ---
JUDD WHATLEY 03/26/16 0829: Subjective Follow-up For: Dysphagia Subjective: She was comfortable this morning. Vitals were stable. Low-grade temperature 99.6 was recorded this morning. Tolerating diet well. Discussed with her, that she could advance her diet if needed. Vitals were stable overnight. Complaining of pain in lower back, from lying in the bed for a prolonged period of time. Yesterday, an endoscopy was done and biopsies were obtained. During the day, she complained of chest discomfort when mag infusion was started. Lasted for less than a minute. WHen examined, she did not have any symptoms. Relieved on stopping magnesium infusion(?). EKG revealed NSR, No STTWI. Couldnt find the [employer] phone to assess the pt. Nursing staff working on gettin git. Review of Systems Constitutional: Reports: see HPI. Objective Last 24 Hrs of Vital Signs/I&O Vital Signs Date Time Temp Pulse Resp B/P Pulse O2 O2 Flow FiO2 Ox Delivery Rate 03/26 0625 99.6 70 20 108/54 96 Room Air 03/25 2156 99.6 88 20 104/54 97 Room Air 03/25 1746 98.1 75 20 108/58 96 Room Air 03/25 1315 98.6 77 20 122/64 96 Room Air Intake & Output 03/26 1600 03/26 0800 03/26 0000 Intake Total 60 120 Output Total Balance 60 120 Intake, Oral 60 120 Physical Exam General Appearance: No Acute Distress Other Physical Findings: General Exam: AAOx3, No acute distress, Skin: No rashes, no breakdown HEENT: PERRLA, EOMI, poor dentition Neck: Supple, No JVD No cervical lymphadenopathy CVS: Reg Rate, Normal S1,S2, No MGR Resp: Normal air entry, no ronchi/rales Abdomen: Soft, No tenderness, Normal Bowel Sounds Neuro: Normal Speech, Strength 5/5 b/l x 4 extremities, Sensation intact, CN III -XII NL, Reflexes 2+. No tenderness in the lower back. Extremities: No cyanosis, No pedal edema. Current Medications: Current Medications Sig/Antonia Start time Last Medication Dose Route Stop Time Status Admin Acetaminophen 650 MG Q6P PRN 03/25 0100 AC PO Famotidine 20 MG BID 03/25 0051 DC 03/25 PO 0927 Loratadine 10 MG DAILY 03/25 1000 AC 03/25 PO 0926 Nystatin 5 ML 4 TIMES/DAY 03/25 0118 DC 03/25 PO 1812 Omeprazole 40 MG BID 03/26 1000 AC PO Omeprazole 40 MG DAILY AC 03/26 0700 DC PO Sodium Chloride 1,000 ML Q13H 03/25 0130 DC 03/25 IV 03/25 1429 0321 Tramadol HCl 50 MG Q6-PRN PRN 03/25 0100 AC 03/26 PO 0534 Last 24 Hrs of Lab/Jorge Results Last 24 Hrs of Labs/Mics: Laboratory Tests 03/26/16 0600: Anion Gap 7, Estimated GFR 44 L, BUN/Creatinine Ratio 12.5, Magnesium 1.4 L, CBC w Diff Pending, WBC Pending, RBC Pending, Hgb Pending, Hct Pending, MCV Pending, MCH Pending, RDW Pending, Plt Count Pending, MPV Pending, PUBS MCHC Pending Assessment/Plan Assessment: Patient is a 75-year-old female with past medical history significant for hepatitis C, recurrent gallstone pancreatitis status post ERCP , osteoarthritis, GERD came to the ER with dysphagia and choking. Recently patient experienced extended sinusitis with upper respiratory infection for which she had 2 courses of antibiotics Augmentin for 10 days followed by Levaquin for 7 days. On admission vitals are stable with unremarkable white count. H&H is 9.9/29.5 with MCV 90.4, platelet count of 118 (chronic) Potassium of 5.3, creatinine 1.8 (baseline 1.1) Chest x-ray Unremarkable She is admitted to general medicine floor for further management Dysphagia/odynophagia * History of GERD, alendronate intake - possible Gayle's/peptic ulcer disease/ pill esophagitis * Underwent endoscopy today - suggestive of GE junction ring at 40 cm * Advanced the diet to regular diet-ground aspirin or speech therapist's recommendation. * If patient continues to have dysphagia/odynophagia esophagogram with liquid barium along with barium soaked bread and barium tablet is considered. * Biopsies were obtained from body, incisura and antrum. Await pathology reports * Eventually required gastro-esophageal ring dilation Acute kidney injury * Creatinine 1.2 (baseline 1.1)-improving. * Potassium of 5.3 at admission which decreased to 3.9 today * Monitor her creatinine GERD * On famotidine 20 mg * Follows Dr. frost * Medical records need to be obtained Hepatitis C * AST/ALT 40/36 * Normal total bili of 0.5 alkaline phosphatase 70 * From cytopenia. * Records need to be obtained Hypertension * On HCTZ 12.5 mg at home * Holding in the setting of SILVIANO. * Resume if blood pressure increases Normocytic anemia * H&H of 9.2. * Reticulocyte count of 2 in 2012 * Ferritin within normal limits with low total iron Seasonal allergies * On famotidine and fluticasone nasal spray * Would continue that Recent sinusitis/respiratory infection * Took 2 courses of antibiotics with Augmentin and Levaquin * Appears resolved DVT prophylaxis * ALPS CODE STATUS * Full code Problem List: 1. Esophageal ring Pain Ratin Pain Location: Back Pain Goal: Pain 4 or less Pain Plan: Tylenol when necessary Tomorrow's Labs & Rationales: - JEREMIE HA,[facility] 03/26/16 1212: Attending MD Review Statement Attending Statement Attending MD Statement: examined this patient, discuss w/resident/PA/LOSS PREVENTION DETECTIVE, agreed w/resident/PA/LOSS PREVENTION DETECTIVE, discussed with family, reviewed EMR data (avail), discussed with nursing, discussed with case mgmt, reviewed images, amended to note Attending Assessment/Plan: Patient resting comfortably in bed. Complains of pain in the right back radiating to back of her thigh, increased on movements. No spinal tenderness on exam. No local bruise or wound. Endoscopy positive for GE junction ring. Had swallow eval today,tolerating diet but her intake is very poor. Magnesium 1.4 noted. SILVIANO improving. Losartan on hold. Plan: 1. Replete magnesium IV, 2. Pain seems like more of sciatica pain. Request physical therapy evaluation for the same. Continue tramadol and Tylenol. Local heat compression. Can also add a Lidoderm patch. 3. Encourage by mouth intake. 4. Patient is currently tolerating by mouth diet, if she continues to have dysphagia/odynophagia she may need further workup including esophagogram or GE junction ring dilatation, as per GI.
[2016-03-26 13:30] VITALS: BP 100/60
--- NOTE | 2016-03-26 14:42 | PN- Gastroenterology ---
Assessment/Plan Assessment/Recommendations: 75-year-old lady with acute dysphagia and odynophagia. Patient had an endoscopy which ruled out food impaction esophagitis patient did have a small Schatzki's ring which was not dilated.. Today patient was seen in her hospital bed. She was eating Jell-O and stated that she has not had any feeling of dysphagia or odynophagia today. Overall she felt comfortable. Pulse was regular heart sounds S1-S2 abdomen Slim soft nontender no rebound. Suggest advancing diet and if taking good by mouth then discharged today. For follow-up with Dr. Sanabria GI. Subjective Subjective: No cough phlegm chest pain shortness of breath palpitations. Objective Vital Signs and I&Os Vital Signs Date Time Temp Pulse Resp B/P Pulse O2 O2 Flow FiO2 Ox Delivery Rate 03/26 1330 98.2 74 18 100/60 96 Room Air 03/26 0625 99.6 70 20 108/54 96 Room Air 03/25 2156 99.6 88 20 104/54 97 Room Air 03/25 1746 98.1 75 20 108/58 96 Room Air Intake & Output 03/26 1600 03/26 0400 03/25 1600 03/25 0400 03/24 1600 03/24 0400 Intake Total 723 998 4052 Output Total Balance 325 140 0662 Intake, IV 100 600 Intake, Oral 660 120 600 Number 0 Bowel Movements Patient 99 lb 15.99 oz 99 lb 15.99 oz Weight Results Pertinent Lab Results: Laboratory Tests 03/26 03/26 1330 0600 Chemistry Sodium (137 - 145 mmol/L) 138 Potassium (3.5 - 5.1 mmol/L) 3.9 Chloride (98 - 107 mmol/L) 105 Carbon Dioxide (22 - 30 mmol/L) 26 Anion Gap (5 - 16) 7 BUN (7 - 17 mg/dL) 15 Creatinine (0.5 - 1.0 mg/dL) 1.2 H Estimated GFR (>60 ml/min) 44 L BUN/Creatinine Ratio (7 - 25 %) 12.5 Magnesium (1.6 - 2.3 mg/dL) 1.4 L Troponin I (< 0.11 ng/ml) < 0.01 Hematology CBC w Diff NO MAN DIFF REQ WBC (4.8 - 10.8 /CUMM) 4.7 L RBC (4.20 - 5.40 /CUMM) 2.98 L Hgb (12.0 - 16.0 G/DL) 9.2 L Hct (37 - 47 %) 26.7 L MCV (81.0 - 99.0 FL) 89.7 MCH (27.0 - 31.0 PG) 30.9 RDW (11.5 - 14.5 %) 14.1 Plt Count (130 - 400 /CUMM) 102 L MPV (7.4 - 10.4 FL) 8.9 Gran % (42.2 - 75.2 %) 46.1 Lymphocytes % (20.5 - 51.1 %) 41.9 Monocytes % (1.7 - 9.3 %) 10.6 H Eosinophils % (0 - 5 %) 1.1 Basophils % (0.0 - 2.0 %) 0.3 Absolute Granulocytes (1.4 - 6.5 /CUMM) 2.1 Absolute Lymphocytes (1.2 - 3.4 /CUMM) 1.9 Absolute Monocytes (0.10 - 0.60 /CUMM) 0.5 Absolute Eosinophils (0.0 - 0.7 /CUMM) 0 Absolute Basophils (0.0 - 0.2 /CUMM) 0 PUBS MCHC (33.0 - 37.0 G/DL) 34.4 03/25 03/24 0630 2115 Chemistry Sodium (137 - 145 mmol/L) 143 Potassium (3.5 - 5.1 mmol/L) 3.8 Chloride (98 - 107 mmol/L) 109 H Carbon Dioxide (22 - 30 mmol/L) 25 Anion Gap (5 - 16) 10 BUN (7 - 17 mg/dL) 26 H Creatinine (0.5 - 1.0 mg/dL) 1.4 H Estimated GFR (>60 ml/min) 36 L BUN/Creatinine Ratio (7 - 25 %) 18.6 Hematology CBC w Diff NO MAN DIFF REQ WBC (4.8 - 10.8 /CUMM) 5.0 RBC (4.20 - 5.40 /CUMM) 3.09 L Hgb (12.0 - 16.0 G/DL) 9.6 L Hct (37 - 47 %) 27.9 L MCV (81.0 - 99.0 FL) 90.4 MCH (27.0 - 31.0 PG) 30.9 RDW (11.5 - 14.5 %) 14.1 Plt Count (130 - 400 /CUMM) 104 L MPV (7.4 - 10.4 FL) 9.3 Gran % (42.2 - 75.2 %) 46.8 Lymphocytes % (20.5 - 51.1 %) 43.3 Monocytes % (1.7 - 9.3 %) 8.4 Eosinophils % (0 - 5 %) 1.0 Basophils % (0.0 - 2.0 %) 0.5 Absolute Granulocytes (1.4 - 6.5 /CUMM) 2.4 Absolute Lymphocytes (1.2 - 3.4 /CUMM) 2.2 Absolute Monocytes (0.10 - 0.60 /CUMM) 0.4 Absolute Eosinophils (0.0 - 0.7 /CUMM) 0 Absolute Basophils (0.0 - 0.2 /CUMM) 0 PUBS MCHC (33.0 - 37.0 G/DL) 34.2 Urines Urine Color (YEL,AMB,STR) YEL Urine Clarity (CLEAR) CLEAR Urine pH (5.0 - 8.0) 6.0 Ur Specific [place] (1.001 - 1.035) 1.025 Urine Protein (NEG,<30 MG/DL) NEG Urine Ketones (NEG) NEG Urine Nitrite (NEG) NEG Urine Bilirubin (NEG) NEG Urine Urobilinogen (0.1 - 1.0 EU/dl) 0.2 Ur Leukocyte Esterase (NEG) NEG Ur Microscopic SEDIMENT EXAMINED Urine RBC (0 - 5 /HPF) RARE Urine WBC (0 - 2 /HPF) RARE Ur Epithelial Cells (NONE,FEW) RARE Hyaline Casts (0/LPF) 1-3 H Urine Mucus (FEW,NONE) RARE Urine Hemoglobin (NEG) TRACE-INTACT Urine Glucose (N MG/DL) NEG 03/24 2103 Chemistry Sodium (137 - 145 mmol/L) 140 Potassium (3.5 - 5.1 mmol/L) 5.3 H Chloride (98 - 107 mmol/L) 105 Carbon Dioxide (22 - 30 mmol/L) 27 Anion Gap (5 - 16) 9 BUN (7 - 17 mg/dL) 34 H Creatinine (0.5 - 1.0 mg/dL) 1.8 H Estimated GFR (>60 ml/min) 27 L BUN/Creatinine Ratio (7 - 25 %) 18.9 Glucose (65 - 99 mg/dL) 118 H Calcium (8.4 - 10.2 mg/dL) 9.0 Iron (37 - 170 ug/dL) 32 L TIBC (265 - 497 ug/dL) 399 Ferritin (11.1 - 264 ng/mL) 49.6 Total Bilirubin (0.2 - 1.3 mg/dL) 0.5 AST (14 - 36 U/L) 40 H ALT (9 - 52 U/L) 36 Alkaline Phosphatase (<127 U/L) 70 Troponin I (< 0.11 ng/ml) < 0.01 Total Protein (6.3 - 8.2 g/dL) 7.9 Albumin (3.5 - 5.0 g/dL) 3.9 Globulin (1.9 - 4.2 gm/dL) 4.0 Albumin/Globulin Ratio (1.1 - 2.2 %) 1.0 L Vitamin B12 (239 - 931 pg/mL) 704 Folate (2.76 - 20.0 ng/mL) > 20.0 H Hematology CBC w Diff NO MAN DIFF REQ WBC (4.8 - 10.8 /CUMM) 5.9 RBC (4.20 - 5.40 /CUMM) 3.27 L Hgb (12.0 - 16.0 G/DL) 9.9 L Hct (37 - 47 %) 29.5 L MCV (81.0 - 99.0 FL) 90.4 MCH (27.0 - 31.0 PG) 30.3 RDW (11.5 - 14.5 %) 14.1 Plt Count (130 - 400 /CUMM) 118 L MPV (7.4 - 10.4 FL) 8.9 Gran % (42.2 - 75.2 %) 62.7 Lymphocytes % (20.5 - 51.1 %) 25.7 Monocytes % (1.7 - 9.3 %) 10.8 H Eosinophils % (0 - 5 %) 0.6 Basophils % (0.0 - 2.0 %) 0.2 Absolute Granulocytes (1.4 - 6.5 /CUMM) 3.7 Absolute Lymphocytes (1.2 - 3.4 /CUMM) 1.5 Absolute Monocytes (0.10 - 0.60 /CUMM) 0.6 Absolute Eosinophils (0.0 - 0.7 /CUMM) 0 Absolute Basophils (0.0 - 0.2 /CUMM) 0 PUBS MCHC (33.0 - 37.0 G/DL) 33.5
[2016-03-26 21:51] VITALS: BP 120/60
[2016-03-27 06:25] VITALS: BP 120/60
--- NOTE | 2016-03-27 09:05 | PN- Housestaff ---
JUDD WHATLEY 03/27/16 0904: Subjective Follow-up For: - dysphagia Subjective: Pt was comfortable. Pt walked w/ no complaints. Tolerating diet well. Advised the family to talk to the pcp, about alendronate, and losartan. vitals [place]. Review of Systems Constitutional: Reports: see HPI. Objective Last 24 Hrs of Vital Signs/I&O Vital Signs Date Time Temp Pulse Resp B/P Pulse O2 O2 Flow FiO2 Ox Delivery Rate 03/27 0625 98.0 68 20 120/60 92 Room Air 03/26 2151 98.2 66 20 120/60 92 03/26 1330 98.2 74 18 100/60 96 Room Air Intake & Output 03/27 1600 03/27 0800 03/27 0000 Intake Total 600 Output Total Balance 600 Intake, Oral 600 Physical Exam General Appearance: No Acute Distress Other Physical Findings: General Exam: AAOx3, No acute distress, Skin: No rashes, no breakdown HEENT: PERRLA, EOMI, poor dentition Neck: Supple, No JVD No cervical lymphadenopathy CVS: Reg Rate, Normal S1,S2, No MGR Resp: Normal air entry, no ronchi/rales Abdomen: Soft, No tenderness, Normal Bowel Sounds Neuro: Normal Speech, Strength 5/5 b/l x 4 extremities, Sensation intact, CN III -XII NL, Reflexes 2+. No tenderness in the lower back. Extremities: No cyanosis, No pedal edema. Current Medications: Current Medications Sig/Antonia Start time Last Medication Dose Route Stop Time Status Admin Acetaminophen 650 MG .STK-MED ONE 03/26 0940 DC PO 03/26 0941 Acetaminophen 650 MG Q6P PRN 03/25 0100 AC 03/26 PO 0943 Loratadine 10 MG DAILY 03/25 1000 AC 03/26 PO 0942 Magnesium Oxide 400 MG ONE ONE 03/27 0915 UNVr PO 03/27 0916 Magnesium Oxide 400 MG ONE ONE 03/26 1500 DC 03/26 PO 03/26 1501 1544 Magnesium Sulfate 1 GM Q2H 03/26 1145 DC 03/26 Dextrose/Water 100 ML IV 03/26 1544 1236 Omeprazole 40 MG BID 03/26 1000 AC 03/26 PO 2033 Tramadol HCl 50 MG Q6-PRN PRN 03/25 0100 AC 03/27 PO 0736 Last 24 Hrs of Lab/Jorge Results Last 24 Hrs of Labs/Mics: Laboratory Tests 03/27/16 0640: Anion Gap 6, Estimated GFR 44 L, BUN/Creatinine Ratio 10.0, Magnesium 1.6 03/26/16 1748: Troponin I 0.02 03/26/16 1330: Troponin I < 0.01 Assessment/Plan Assessment: Patient is a 75-year-old female with past medical history significant for hepatitis C, recurrent gallstone pancreatitis status post ERCP , osteoarthritis, GERD came to the ER with dysphagia and choking. Recently patient experienced extended sinusitis with upper respiratory infection for which she had 2 courses of antibiotics Augmentin for 10 days followed by Levaquin for 7 days. On admission vitals are stable with unremarkable white count. H&H is 9.9/29.5 with MCV 90.4, platelet count of 118 (chronic) Potassium of 5.3, creatinine 1.8 (baseline 1.1) Chest x-ray Unremarkable She is admitted to general medicine floor for further management Dysphagia/odynophagia * History of GERD, * Underwent endoscopy - suggestive of GE junction ring, likely explanation for the symptoms. * Advanced the diet to regular diet, mechanical soft. * If patient continues to have dysphagia/odynophagia esophagogram with liquid barium along with barium soaked bread and barium tablet is considered. * Biopsies were obtained from body, incisura and antrum. Await pathology reports * Eventually required gastro-esophageal ring dilation Acute kidney injury * Creatinine 1.2-improving. * Potassium improging. * Monitor her creatinine * Recheck BEP w/ cr, and Mg in a week. GERD * On famotidine 20 mg * Follows Dr. frost * Medical records need to be obtained Hepatitis C * AST/ALT 40/36 * Normal total bili of 0.5 alkaline phosphatase 70 * From cytopenia. * Records need to be obtained Hypertension * On HCTZ 12.5 mg at home * Holding in the setting of SILVIANO. * Resume if blood pressure increases Normocytic anemia * H&H of 9.2. * Reticulocyte count of 2 in 2012 * Ferritin within normal limits with low total iron Seasonal allergies * On famotidine and fluticasone nasal spray * Would continue that Recent sinusitis/respiratory infection * Took 2 courses of antibiotics with Augmentin and Levaquin * Appears resolved DVT prophylaxis * ALPS CODE STATUS * Full code Problem List: 1. Esophageal ring 2. Hypertension Pain Ratin Pain Location: abdomen Pain Goal: Pain 4 or less Pain Plan: tyelnol prn Tomorrow's Labs & Rationales: no labs necessary. pt to be discharged. JEREMIE HA,JEANNIE 03/27/16 1041: Attending MD Review Statement Attending Statement Attending MD Statement: examined this patient, discuss w/resident/PA/METER ENGINEER, agreed w/resident/PA/METER ENGINEER, discussed with family, reviewed EMR data (avail), discussed with nursing, discussed with case mgmt, reviewed images, amended to note Attending Assessment/Plan: Patient resting comfortably in bed. Says her by mouth intake is better, she still has some difficulty eating solid food. Was seen by GI yesterday. Cleared from GI side. If needed She'll have her rest of the GI workup as an outpatient with Dr. Sanabria. Her back pain is much better. Patient was offered IV fluids with magnesium and she refused it saying that she gets chest pain with IV fluids. Plan: 1. Continue by mouth magnesium 400 mg twice a day. 2. Continue tramadol and Tylenol. Local heat compression when necessary for pain. 3. Encourage by mouth intake. 4. Kidney function has improved, very close to the baseline. Patient can be discharged today, make sure she follows up with her PCP in a week , she'll need a basic electrolyte panel and magnesium check in a week, is providing her with a prescription for the same. Follow-up with GI as an outpatient. 5. Patient's losartan is on hold because of her AK I, her blood pressures in the hospital per within normal range even off of losartan. Please follow up with PCP in a week, patient needs to be reevaluated for the need of antihypertensive medication.
--- NOTE | 2016-03-27 11:13 | Patient Discharge Instructions ---
Discharge Instructions General Discharge Information You were seen/treated for: #1 difficulty swallowing #2 abnormal kidney function Watch for these problems: #1 difficulty swallowing #2 chest pain #3 difficulty breathing Special Instructions: #1 please follow up with her primary care provider within a week of discharge. #2 please follow-up with your chief operating engineer-about a possible esophagogram to be done. #3 please get her blood work-basic electrolyte panel including serum creatinine (kidney function), serum magnesium done on 03/31/2016. #4 please your primary care doctor about recent medication change, that losartan is being held for abnormal kidney function. #5 please take mechanical soft ground diet to avoid obstruction in upper GI tract. #6 please talk to your primary care doctor about alendronate as soon as possible. It is being held at this time, since you had difficulty swallowing. Acute Coronary Syndrome Inclusion Criteria At DC or during hospital stay patient has or had the following: ACS DIAGNOSIS No Discharge Core Measures Meds if any: Prescribed or Continued at Discharge Meds if any: NOT Prescribed or Continued at Discharge Congestive Heart Failure Inclusion Criteria At DC or during hospital stay patient has or had the following: CHF DIAGNOSIS No Discharge Core Measures Meds if any: Prescribed or Continued at Discharge Meds if any: NOT Prescribed or Continued at Discharge Cerebrovascular accident Inclusion Criteria At DC or during hospital stay patient has or had the following: CVA/TIA Diagnosis No Discharge Core Measures Meds if any: Prescribed or Continued at Discharge Meds if any: NOT Prescribed or Continued at Discharge Venous thromboembolism Inclusion Criteria VTE Diagnosis No VTE Type NONE VTE Confirmed by (Test) NONE Discharge Core Measures - Per Current guidelines, there needs to be overlap - treatment for the first 5 days of Warfarin therapy. - If discharged on Warfarin prior to 5 days of - overlap therapy, the patient will need to be - assessed for post discharge needs including - *Post discharge parental anticoagulation - *Warfarin and/or parental anticoagulation education - *Follow up date to check INR post discharge At least 5 days overlap therapy as Inpatient No Meds if any: Prescribed or Continued at Discharge Note: Overlap Therapy is Warfarin and Anticoagulant Meds if any: NOT Prescribed or Continued at Discharge
[2016-03-27] MEDS ORDERED: MAGNESIUM400 M1 PO (11:16)
--- NOTE | 2016-03-27 13:14 | PN- Gastroenterology ---
Assessment/Plan Assessment/Recommendations: 75-year-old lady with acute dysphagia and odynophagia. Patient had an endoscopy which ruled out food impaction esophagitis patient did have a small Schatzki's ring which was not dilated.. Today patient was seen in her hospital bed. No further dysphagia or odynophagia. Able to take solids and liquids. No epigastric discomfort nausea or vomiting. Overall she felt comfortable. Pulse was regular heart sounds S1-S2 abdomen Slim soft nontender no rebound. Suggest advancing diet and if taking good by mouth then can be discharged from GI perspective. For follow-up with Dr. Sanabria GI. Subjective Subjective: No chest pain shortness of breath palpitations Edith pager dysphagia abdominal pain Objective Vital Signs and I&Os Vital Signs Date Time Temp Pulse Resp B/P Pulse O2 O2 Flow FiO2 Ox Delivery Rate 03/27 0625 98.0 68 20 120/60 92 Room Air 03/26 2151 98.2 66 20 120/60 92 03/26 1330 98.2 74 18 100/60 96 Room Air Intake & Output 03/27 1600 03/27 0400 03/26 1600 03/26 0400 03/25 1600 03/25 0400 Intake Total 600 880 433 9047 Output Total Balance 600 450 723 6367 Intake, IV 100 600 Intake, Oral 600 660 120 600 Number 0 Bowel Movements Patient 99 lb 15.99 oz 99 lb 15.99 oz Weight Results Pertinent Lab Results: Laboratory Tests 03/27 03/26 03/26 03/26 0640 1748 1330 0600 Chemistry Sodium (137 - 145 mmol/L) 138 138 Potassium (3.5 - 5.1 mmol/L) 4.0 3.9 Chloride (98 - 107 mmol/L) 105 105 Carbon Dioxide (22 - 30 mmol/L) 27 26 Anion Gap (5 - 16) 6 7 BUN (7 - 17 mg/dL) 12 15 Creatinine (0.5 - 1.0 mg/dL) 1.2 H 1.2 H Estimated GFR (>60 ml/min) 44 L 44 L BUN/Creatinine Ratio (7 - 25 %) 10.0 12.5 Magnesium (1.6 - 2.3 mg/dL) 1.6 1.4 L Troponin I (< 0.11 ng/ml) 0.02 < 0.01 Hematology CBC w Diff NO MAN DIFF REQ WBC (4.8 - 10.8 /CUMM) 4.7 L RBC (4.20 - 5.40 /CUMM) 2.98 L Hgb (12.0 - 16.0 G/DL) 9.2 L Hct (37 - 47 %) 26.7 L MCV (81.0 - 99.0 FL) 89.7 MCH (27.0 - 31.0 PG) 30.9 RDW (11.5 - 14.5 %) 14.1 Plt Count (130 - 400 /CUMM) 102 L MPV (7.4 - 10.4 FL) 8.9 Gran % (42.2 - 75.2 %) 46.1 Lymphocytes % (20.5 - 51.1 %) 41.9 Monocytes % (1.7 - 9.3 %) 10.6 H Eosinophils % (0 - 5 %) 1.1 Basophils % (0.0 - 2.0 %) 0.3 Absolute Granulocytes (1.4 - 6.5 /CUMM) 2.1 Absolute Lymphocytes (1.2 - 3.4 /CUMM) 1.9 Absolute Monocytes (0.10 - 0.60 /CUMM) 0.5 Absolute Eosinophils (0.0 - 0.7 /CUMM) 0 Absolute Basophils (0.0 - 0.2 /CUMM) 0 PUBS MCHC (33.0 - 37.0 G/DL) 34.4 03/25 03/24 0630 2115 Chemistry Sodium (137 - 145 mmol/L) 143 Potassium (3.5 - 5.1 mmol/L) 3.8 Chloride (98 - 107 mmol/L) 109 H Carbon Dioxide (22 - 30 mmol/L) 25 Anion Gap (5 - 16) 10 BUN (7 - 17 mg/dL) 26 H Creatinine (0.5 - 1.0 mg/dL) 1.4 H Estimated GFR (>60 ml/min) 36 L BUN/Creatinine Ratio (7 - 25 %) 18.6 Hematology CBC w Diff NO MAN DIFF REQ WBC (4.8 - 10.8 /CUMM) 5.0 RBC (4.20 - 5.40 /CUMM) 3.09 L Hgb (12.0 - 16.0 G/DL) 9.6 L Hct (37 - 47 %) 27.9 L MCV (81.0 - 99.0 FL) 90.4 MCH (27.0 - 31.0 PG) 30.9 RDW (11.5 - 14.5 %) 14.1 Plt Count (130 - 400 /CUMM) 104 L MPV (7.4 - 10.4 FL) 9.3 Gran % (42.2 - 75.2 %) 46.8 Lymphocytes % (20.5 - 51.1 %) 43.3 Monocytes % (1.7 - 9.3 %) 8.4 Eosinophils % (0 - 5 %) 1.0 Basophils % (0.0 - 2.0 %) 0.5 Absolute Granulocytes (1.4 - 6.5 /CUMM) 2.4 Absolute Lymphocytes (1.2 - 3.4 /CUMM) 2.2 Absolute Monocytes (0.10 - 0.60 /CUMM) 0.4 Absolute Eosinophils (0.0 - 0.7 /CUMM) 0 Absolute Basophils (0.0 - 0.2 /CUMM) 0 PUBS MCHC (33.0 - 37.0 G/DL) 34.2 Urines Urine Color (YEL,AMB,STR) YEL Urine Clarity (CLEAR) CLEAR Urine pH (5.0 - 8.0) 6.0 Ur Specific [place] (1.001 - 1.035) 1.025 Urine Protein (NEG,<30 MG/DL) NEG Urine Ketones (NEG) NEG Urine Nitrite (NEG) NEG Urine Bilirubin (NEG) NEG Urine Urobilinogen (0.1 - 1.0 EU/dl) 0.2 Ur Leukocyte Esterase (NEG) NEG Ur Microscopic SEDIMENT EXAMINED Urine RBC (0 - 5 /HPF) RARE Urine WBC (0 - 2 /HPF) RARE Ur Epithelial Cells (NONE,FEW) RARE Hyaline Casts (0/LPF) 1-3 H Urine Mucus (FEW,NONE) RARE Urine Hemoglobin (NEG) TRACE-INTACT Urine Glucose (N MG/DL) NEG 03/24 2103 Chemistry Sodium (137 - 145 mmol/L) 140 Potassium (3.5 - 5.1 mmol/L) 5.3 H Chloride (98 - 107 mmol/L) 105 Carbon Dioxide (22 - 30 mmol/L) 27 Anion Gap (5 - 16) 9 BUN (7 - 17 mg/dL) 34 H Creatinine (0.5 - 1.0 mg/dL) 1.8 H Estimated GFR (>60 ml/min) 27 L BUN/Creatinine Ratio (7 - 25 %) 18.9 Glucose (65 - 99 mg/dL) 118 H Calcium (8.4 - 10.2 mg/dL) 9.0 Iron (37 - 170 ug/dL) 32 L TIBC (265 - 497 ug/dL) 399 Ferritin (11.1 - 264 ng/mL) 49.6 Total Bilirubin (0.2 - 1.3 mg/dL) 0.5 AST (14 - 36 U/L) 40 H ALT (9 - 52 U/L) 36 Alkaline Phosphatase (<127 U/L) 70 Troponin I (< 0.11 ng/ml) < 0.01 Total Protein (6.3 - 8.2 g/dL) 7.9 Albumin (3.5 - 5.0 g/dL) 3.9 Globulin (1.9 - 4.2 gm/dL) 4.0 Albumin/Globulin Ratio (1.1 - 2.2 %) 1.0 L Vitamin B12 (239 - 931 pg/mL) 704 Folate (2.76 - 20.0 ng/mL) > 20.0 H Hematology CBC w Diff NO MAN DIFF REQ WBC (4.8 - 10.8 /CUMM) 5.9 RBC (4.20 - 5.40 /CUMM) 3.27 L Hgb (12.0 - 16.0 G/DL) 9.9 L Hct (37 - 47 %) 29.5 L MCV (81.0 - 99.0 FL) 90.4 MCH (27.0 - 31.0 PG) 30.3 RDW (11.5 - 14.5 %) 14.1 Plt Count (130 - 400 /CUMM) 118 L MPV (7.4 - 10.4 FL) 8.9 Gran % (42.2 - 75.2 %) 62.7 Lymphocytes % (20.5 - 51.1 %) 25.7 Monocytes % (1.7 - 9.3 %) 10.8 H Eosinophils % (0 - 5 %) 0.6 Basophils % (0.0 - 2.0 %) 0.2 Absolute Granulocytes (1.4 - 6.5 /CUMM) 3.7 Absolute Lymphocytes (1.2 - 3.4 /CUMM) 1.5 Absolute Monocytes (0.10 - 0.60 /CUMM) 0.6 Absolute Eosinophils (0.0 - 0.7 /CUMM) 0 Absolute Basophils (0.0 - 0.2 /CUMM) 0 PUBS MCHC (33.0 - 37.0 G/DL) 33.5 Suggest advancing diet and if taking good by mouth then can be discharged from GI perspective. For follow-up with Dr. Elly SWEENEY.
--- NOTE | 2016-03-27 17:18 | Discharge Summary ---
Visit Information Visit Dates Admission Date: 03/24/16 Discharge Date: 03/27/16 Hospital Course Course Attending Physician: MIMI STEINBERG MD Primary Care Physician: DION FELIZ MD Consulting Request: Consulting Specialty: Gastroenterology Consulting Physician: Reason for Consult: Dysphagia/odynophagia Hospital Course: Patient is a 75-year-old female with past medical history significant for hepatitis C, recurrent gallstone pancreatitis status post ERCP , osteoarthritis, GERD came to the ER with dysphagia and choking. Recently patient experienced extended sinusitis with upper respiratory infection for which she had 2 courses of antibiotics Augmentin for 10 days followed by Levaquin for 7 days. On admission vitals are stable with unremarkable white count. H&H is 9.9/29.5 with MCV 90.4, platelet count of 118 (chronic) Potassium of 5.3, creatinine 1.8 (baseline 1.1) Chest x-ray Unremarkable She is admitted to general medicine floor for further management Dysphagia/odynophagia Patient had a feeling of food sticking in her throat in the setting of GERD and alendronate intake. Underwent endoscopy - suggestive of GE junction ring, likely explanation for the symptoms. Started on full liquid diet then changed to mechanical soft. If patient continues to have dysphagia/odynophagia esophagogram with liquid barium along with barium soaked bread and barium tablet is considered. Biopsies were obtained from body, incisura and antrum. Await pathology reports. Eventually required gastro-esophageal ring dilation Acute kidney injury Creatinine of 1.8 (baseline 1.1) with potassium of 5.3 at admission. Started on IVF slowly improved with Creatinine of 1.2 & K of 4.0. Mag is persistently low with 1.6 at discharge. Needs outpatient follow up of BEP and Magnesium levels in a week. Mag oxide is prescribed for 15days. GERD On famotidine 20 mg at home, initially converted to IV protonix BID. However converted to home medication at discharge. Hepatitis C AST/ALT 40/36 with Normal total bili of 0.5 & alkaline phosphatase 70. Chronic thrombocytopenia noted. Hypertension Holding both HCTZ 12.5mg daily and losartan 100mg daily in the setting of SILVIANO. Needs further monitoring of BEP & BP, and resume as an outpatient. Normocytic anemia Hb of 9.2. Ferritin within normal limits with low total iron Seasonal allergies Her home medications Loratidine and fluticasone nasal spray are continued. DVT prophylaxis * ALPS CODE STATUS * Full code Complications: None Allergies: Coded Allergies: heparin (THROMBOCYTOPENIA 03/24/16) sulfamethoxazole (From BACTRIM) (HIVES 03/24/16) trimethoprim (From BACTRIM) (HIVES 03/24/16) Significant Procedures: Endoscopy Procedure Procedure Date: 03/25/16 Procedure Type: EGD w/biopsy Lifestyle Block Farmer: Kathrin Sanabria M.D. ASA Classification: III Indications: 1. Acute dysphagia, odynophagia 2. Chronic GERD 3. Recurrent epigastric pain; possible history of peptic ulcer disease 4. Hepatitis C with possible cirrhosis. Rule out evidence of portal hypertension. Instrument: diagnostic gastroscope Meds Received: HAWA Patient's Tolerance: good Complications: none Extent Reached: second part of duodenum Impression: * Poor dentition * No thrush * No evident esophagitis * No varices, or evidence of portal hypertension. * GE junction ring Recommendations: * Begin full liquid diet with polymeric supplements, and advance to regular diet if tolerated (soft, or chopped/pured, given dentition). * Continue PPI, at BID dosing for now * Await pathology * If continues to have dysphagia and/or odynophagia, consider esophagram with liquid barium as well as barium soaked bread and barium tablet. May eventually require dilatation of GE junction ring. * Outpatient management of hepatitis C * Attention to poor dentition as outpatient Biopsy during endoscopy procedure: Biopsies were obtained from body, incisura and antrum. Await pathology reports Pertinent Lab Results: Low H&H appears chronic Creatinine of 1.8 at admission - came down to 1.2 at discharge. Please follow up. Disposition Summary Disposition Principal Diagnosis: Acute dysphagia/Odynophagia Additional Diagnosis: SILVIANO Discharge Disposition: home or self care Discharge Instructions General Discharge Information Code Status: Full Code Patient's Diet: mechanical soft ground diet to avoid obstruction in upper GI tract. Patient's Activity: Full activity as tolerated Follow-Up Instructions/Appts: #1 please follow up with her primary care provider within a week of discharge. #2 please follow-up with your loss control engineer-about a possible esophagogram to be done. #3 please get her blood work-basic electrolyte panel including serum creatinine (kidney function), serum magnesium done on 03/31/2016. #4 Inform your primary care doctor about recent medication change, that losartan is being held for abnormal kidney function. #5 please take mechanical soft ground diet to avoid obstruction in upper GI tract. #6 please talk to your primary care doctor about alendronate as soon as possible. It is being held at this time, since you had difficulty swallowing. Medications at Discharge Discharge Medications: Stop taking the following medications: Hydrochlorothiazide (Hydrochlorothiazide) 12.5 MG TABLET ORAL DAILY Qty = 90 Levofloxacin (Levofloxacin) 500 MG TABLET ORAL DAILY Qty = 10 Alendronate Sodium (Alendronate Sodium) 70 MG TABLET ORAL EVERY MONDAY Qty = 12 Losartan Potassium (Losartan Potassium) 100 MG TABLET ORAL DAILY Qty = 90 Continue taking these medications: Famotidine (Famotidine) 20 MG TABLET 1 Tablet ORAL TWICE DAILY Qty = 180 Comments: Last Taken: 03/27/16 Time: 1000 Fluticasone Propionate (Flonase Allergy Relief) 50 MCG/ACTUATION SPRAY.SUSP 1 [place] Both sides of nose DAILY Comments: NOT TAKEN IN HOSPITAL Loratadine (Claritin) 10 MG TABLET 1 Tablet ORAL DAILY Comments: Last Taken: 03/27/16 Time: 1000 Tramadol HCl (Tramadol HCl) 50 MG TABLET 1 Tablet ORAL DAILY as needed for PAIN Qty = 180 Comments: Last Taken: 03/27/16 Time: 0730 Cyclosporine (Restasis) 0.05 % DROPERETTE 1 Drop In the eye TWICE DAILY Qty = 60 Comments: PER PT NOT TAKEN IN HOSPITAL Start taking the following new medications: Magnesium Oxide (Magnesium) 400 MG CAPSULE 1 Capsule ORAL DAILY Qty = 15 No Refills Comments: Last Taken: 03/27/16 Time: 1000 Copies To: MIMI STEINBERG MD; DION FELIZ MD; KIET HA,KATHRIN Young MD Review Statement Documenting Attending: MIMI STEINBERG MD
== END 2016-03-27 13:21 | DRG 683 ==
LOC: ENRESERVTM → CANRESERV → ENRESERVDT → ERH 18:29 → ERHI 22:33 → 2NA 22:33
PROVIDERS: Internal Medicine; Physician Assistant Medical; ADMIT Internal Medicine
PROC: 0DB68ZX Excision of Stomach, Via Natural or Artificial Opening Endoscopic, Diagnostic (ICD-10-PCS; principal; 2016-03-25)
DX: N17.9 Acute kidney failure, unspecified (principal); B37.81 Candidal esophagitis; D69.6 Thrombocytopenia, unspecified; E87.5 Hyperkalemia; R13.10 Dysphagia, unspecified; E86.0 Dehydration; B18.2 Chronic viral hepatitis C; I10 Essential (primary) hypertension; K21.9 Gastro-esophageal reflux disease without esophagitis; M19.90 Unspecified osteoarthritis, unspecified site; K44.9 Diaphragmatic hernia without obstruction or gangrene
CPT/HCPCS: 2NASP; ERO; 36415; 81001; 82436; 87804; 87804-59; 88305; 88312; 93005; 93010; J7060

== ENCOUNTER → 2017-04-26 | Day surgery (SDC) | payer OTHER ==
[~2017-04-26] VITALS: Ht 149.9 cm; Wt 45.4 kg
[~2017-04-26] MED LIST changes: +ALENDRONATE SOD70 M2 PO; +BENTYL10 M1 PO; +CLARITIN10 M1 PO; +FAMOTIDINE20 M1 PO; +FLONASE ALLERG9.9 ML NASB; +HARVONI 90-4001 EACH PO; +HYDROCHLOROTH12.5 M2 PO; +LEVOCETIRIZINE D5 M1 PO; +LEVOFLOXACIN500 M1 PO; +LOSARTAN POTAS100 M1 PO; +MAGNESIUM400 M1 PO; +RESTASIS1 EACH OU; +TRAMADOL HCL50 M1 PO
--- NOTE | 2017-04-26 09:00 | Operative Report ---
Operative/Inv Procedure Report Surgery Date: 04/26/17 Name of Procedure: Cataract extraction lens implantation right eye Pre-Operative Diagnosis: Age-related cataract right eye 20/60 vision Post-Operative Diagnosis: Same Estimated Blood Loss: none Surgeon/Telephony Engineer: Gerhard HA,Tyler Simmons Anesthesia: local monitored anesthesi Complications: None Operative/Procedure Note Note: The patient was brought to the operating room standard monitoring equipment was attached the patient was prepped and draped in the usual fashion for intraocular surgery. A lid speculum was placed to retract the lids. The case was begun by making a temporal incision with a 2.4 mm keratome. The eye was stabilized with a C[place] ring during this incision. 1 mL of non-preserved lidocaine was introduced into the anterior chamber to provide anesthesia. The anterior chamber was then filled and deepened with viscoelastic. A curvilinear capsulorrhexis was achieved using a 30-gauge needle and is a cystotome and capsulorrhexis was finished using a Utrata forceps. A second or paracentesis incision was made temporally with a 1 mm MVR blade. The lens was then hydrodissected with balanced salt solution and found to be rotatable. The lens was emulsified using phacoemulsification and a modified four-quadrant cracking technique. The residual cortical material was removed using automated irrigation and aspiration and as much of the anterior capsular rim was cleaned as well as possible. The posterior capsule was cleaned first with the automated machine on a low setting and then manually with a Williams squeegee. The capsular bag was deepened with viscoelastic. The lens a SA60WF 17.5 Diopter placed into the bag under direct visualization and rotated so that the haptics were at 12 and 6:00. Viscoelastic was then removed from the eye by flushing it out and then by automated irrigation and aspiration. The eye was pressurized to a normal tone. 1/10 of a cc of cefuroxime solution was introduced into the anterior chamber to provide antibiotic prophylaxis. The wounds were sealed by hydrating the stroma adjacent to them and the eye was left at a proper tone after the wounds were checked and found not to be leaking. The lid speculum was removed from the orbit. Antibiotic and steroid drops were placed on the eye and then the eye was shielded. Monitoring equipment was removed from the patient and the patient was removed from the operative suite to the holding area. The patient tolerated the procedure well and will be seen in the office tomorrow.
== END ==
LOC: STS 00:45
DX: H25.9 Unspecified age-related cataract (principal); I10 Essential (primary) hypertension; B19.20 Unspecified viral hepatitis C without hepatic coma; K21.9 Gastro-esophageal reflux disease without esophagitis
CPT/HCPCS: J2250; V2632